=== PATIENT | male | born 1945 | race Caucasian/White ===

== ENCOUNTER 2022-09-29 12:48 | Emergency (ER) | payer MEDICARE, OTHER ==
--- NOTE | 2022-09-29 13:17 | ED Physician Documentation ---
History of Present Illness - Stated complaint Stated Complaint: BP ISSUE - Chief complaint Chief Complaint: Cardiac - History obtained from History obtained from: Patient, Family - Additonal information Additional information: 76-year-old male with past medical history of Parkinson's dementia who presents with his after he was found to have low blood pressure at home today by his home health nurse. As of first day that the home health nurse visited him and she took routine vital signs and found his blood pressure to be in the 70s over 40s. She took several different times.Patient was not having any symptoms, has been in his usual state of health today, no fever or chills, no cough or URI symptoms, no chest pain or difficulty breathing, no abdominal pain, no nausea vomiting or diarrhea, no new urinary symptoms though does state he voids frequently throughout the night. He has not had any changes in his mentation or increased confusion. states that this is happened in the past, patient has had quite labile blood pressure where he is extremely low or if agitated he can be extremely high in the 200s. He has been prescribed metoprolol in the past but is not currently on it. He is not currently on carbidopa levodopa either due to adverse effects Review of Systems Ten Systems: 10 systems reviewed and negative (Except as noted per HPI) PD PAST MEDICAL HISTORY - Past Medical History Past Medical History: Yes Neuro: Parkinson's - Present Medications Home Medications: Ambulatory Orders Medication Instructions Recorded Confirmed Cholecalciferol [Vitamin D3] 5,000 unit PO DAILY 09/29/22 09/29/22 Rivastigmine [Exelon] 1.5 mg PO BID 09/29/22 09/29/22 - Allergies Allergies/Adverse Reactions: Allergies Allergy/AdvReac Type Severity Reaction Status Date / Time No Known Drug Allergies Allergy Verified 09/29/22 13:02 - Social History Does the pt smoke?: No Smoking Status: Never smoker - Immunizations Immunizations are current?: Yes PD ED PE NORMAL - Vitals Vital signs reviewed: Yes - General General: Alert and oriented X 3, No acute distress, Well developed/nourished - HEENT HEENT: Atraumatic, Moist mucous membranes, Pharynx benign - Neck Neck: Supple, no meningeal sign - Cardiac Cardiac: RRR, No murmur, No gallop, No rub, Strong equal pulses - Respiratory Respiratory: No respiratory distress, Clear bilaterally - Abdomen Abdomen: Normal bowel sounds, Soft, Non tender, Non distended - Back Back: No CVA TTP, No spinal TTP - Derm Derm: Normal color, Warm and dry, No rash - Extremities Extremities: No deformity, No edema - Neuro Neuro: Alert and oriented X 3 (slow to respond, mask facies, but awake and alert. ) Eye Opening: Spontaneous Motor: Obeys Commands Verbal: Oriented GCS Score: 15 Results - Vitals Vitals: Vital Signs - 24 hr 09/29/22 09/29/22 09/29/22 12:59 13:03 13:13 Temperature 36.6 C Heart Rate 68 63 Respiratory 11 L 14 Rate Blood Pressure 146/78 H 163/74 H Blood Pressure 163/74 H [Left] O2 Saturation 100 100 Oxygen O2 Source Room air - EKG (time done) No standard instances Rate: Rate (enter#) (59) Rhythm: Sinus bradycardia Kemp: Normal Intervals: Normal [place] QRS: Normal Ischemia: Normal ST segments Compare to prior EKG: Old EKG unavailable Computer interpretation: Agree with computer - Labs Labs: Laboratory Tests 09/29/22 09/29/22 09/29/22 13:13 13:13 13:13 WBC 9.0 RBC 4.70 Hgb 13.1 L Hct 40.6 L MCV 86.4 MCH 27.9 MCHC 32.3 RDW 13.1 Plt Count 258 MPV 10.0 Neut # (Auto) 6.4 Lymph # (Auto) 1.8 Mcintosh # (Auto) 0.8 Eos # (Auto) 0.0 Baso # (Auto) 0.0 Absolute Nucleated RBC 0.00 Nucleated RBC % 0.0 Sodium 139 Potassium 4.3 Chloride 102 Carbon Dioxide 27 Anion Gap 10.0 BUN 32 H Creatinine 1.2 Estimated GFR (MDRD) 59 L Glucose 109 H Calcium 8.8 Total Bilirubin 0.5 AST 15 ALT 13 Alkaline Phosphatase 61 Troponin I High Sens 3.1 Total Protein 6.7 Albumin 3.7 Globulin 3.0 Albumin/Globulin Ratio 1.2 Lipase 44 Urine Color Urine Clarity Urine pH Ur Specific [place] Urine Protein Urine Glucose (UA) Urine Ketones Urine Occult Blood Urine Nitrite Urine Bilirubin Urine Urobilinogen Ur Leukocyte Esterase Ur Microscopic Review Urine Culture Comments 09/29/22 14:00 WBC RBC Hgb Hct MCV MCH MCHC RDW Plt Count MPV Neut # (Auto) Lymph # (Auto) Mcintosh # (Auto) Eos # (Auto) Baso # (Auto) Absolute Nucleated RBC Nucleated RBC % Sodium Potassium Chloride Carbon Dioxide Anion Gap BUN Creatinine Estimated GFR (MDRD) Glucose Calcium Total Bilirubin AST ALT Alkaline Phosphatase Troponin I High Sens Total Protein Albumin Globulin Albumin/Globulin Ratio Lipase Urine Color YELLOW Urine Clarity CLEAR Urine pH 7.0 Ur Specific [place] 1.015 Urine Protein NEGATIVE Urine Glucose (UA) NEGATIVE Urine Ketones NEGATIVE Urine Occult Blood NEGATIVE Urine Nitrite NEGATIVE Urine Bilirubin NEGATIVE Urine Urobilinogen 0.2 (NORMAL) Ur Leukocyte Esterase NEGATIVE Ur Microscopic Review NOT INDICATED Urine Culture Comments NOT INDICATED PD MEDICAL DECISION MAKING - ED course Complexity details: reviewed results, re-evaluated patient, considered differential, d/w patient, d/w family ED course: This is a very pleasant 76-year-old male who presented at the request of his [facility] due to concerns for hypotension. The patient was asymptomatic at the time but had a quite low blood pressure at home. By the time he arrived here, his blood pressure was normal to even somewhat elevated. He had no symptoms and no concerns. We did do a work-up to evaluate for any potential causes of hypotension such as acute coronary syndrome, dehydration, infection, and his work-up was reassuring. His EKG shows no acute ischemic changes, his labs are largely reassuring of a possible slight dehydration on exam with a BUN of 32. His urinalysis was not suspicious for infection and his physical exam was otherwise stable. This is likely secondary to the nonmotor symptoms of Parkinson's and hypotension is unfortunately a common feature of the disease. He was advised to move slowly from different positions to avoid orthostatic hypotension, consider compression stockings which may help, and to drink a large glass of water and perhaps a salty snack if he Developes hypotension. If it does not improve with These interventions or if he has accompanied symptoms such as chest pain or signs of infection, he should follow-up in the ER. Departure - Departure Disposition: 01 Home, Self Care Clinical Impression: Hypotension Qualifiers: Hypotension type: unspecified hypotension type Qualified Code(s): I95.9 - Hypotension, unspecified Condition: Good Instructions: ED Hypotension All Causes Comments: Vineet presented with an episode of hypotension. We evaluated him here and his blood pressure was normal, his cardiac work-up was also stable and there are no signs of infection. He does have possible mild dehydration on his labs and should be encouraged to drink plenty of water in the next several days. Hypotension can occur frequently in people that have Parkinson's disease. This is often orthostatic hypotension which occurs when he stands up or gets up quickly. He should move carefully and move slowly from a seated to standing or laying to seated position to reduce chance of hypotension. Unfortunately there is no specific treatment for this issue but you can ensure that he is staying well-hydrated and you may try compression stockings in his legs that can Help, as well as physical therapy. Some people do try different medications for this issue but they can often result in hypertension. Please follow-up with his regular doctor if for ongoing management of this issue. He is stable for discharge home at this time.
[2022-09-29 13:21] LABS: BASOPHILS % (AUTO) 0.3 %; EOSINOPHILS % (AUTO) 0.3 %; HCT - HEMATOCRIT 40.6 % (42.0-52.0); HGB - HEMOGLOBIN 13.1 g/dL (14.0-18.0); LYMPHOCYTES # (AUTO) 1.8 10^3/uL (1.5-3.5); LYMPHOCYTES % (AUTO) 19.5 %; MEAN CORPUSCULAR HEMOGLOBIN 27.9 pg (27.0-31.0); MEAN CORPUSCULAR HGB CONC 32.3 g/dL (32.0-36.0); MEAN CORPUSCULAR VOLUME 86.4 fL (80.0-94.0); MONOCYTES # (AUTO) 0.8 10^3/uL (0.0-1.0); MONOCYTES % (AUTO) 8.3 %; NEUTROPHILS # (AUTO) 6.4 10^3/uL (1.5-6.6); NEUTROPHILS % (AUTO) 71.3 %; PLT - PLATELET COUNT 258 10^3/uL (130-450); RED CELL DISTRIBUTION WIDTH 13.1 % (12.0-15.0)
[2022-09-29 13:37] LABS: ALBUMIN 3.7 g/dL (3.2-5.5); ALBUMIN/GLOBULIN RATIO 1.2 (1.0-2.2); BILIRUBIN,TOTAL 0.5 mg/dL (0.2-1.0); CALCIUM 8.8 mg/dL (8.5-10.3); CREATININE 1.2 mg/dL (0.6-1.2); POTASSIUM 4.3 mmol/L (3.5-5.0); TOTAL PROTEIN 6.7 g/dL (6.7-8.2)
--- NOTE | 2022-09-29 13:37 | XRAY Report ---
PROCEDURE: Chest 1 View X-Ray INDICATIONS: Chest Pain TECHNIQUE: One view of the chest was acquired. COMPARISON: None. FINDINGS: Surgical changes and devices: None. Lungs and pleura: No pleural effusions or pneumothorax. Lungs are clear. Mediastinum: Mediastinal contours appear normal. Heart size is normal. Bones and chest wall: No suspicious bony lesions. Overlying soft tissues appear unremarkable. IMPRESSION: No acute cardiopulmonary pathology. Reviewed by: Wei Olivera MD on 09/29/2022 1:36 PM [facility] Approved by: Wei Olivera MD on 09/29/2022 1:36 PM [facility] Station ID: [id number]
[2022-09-29 14:09] LABS: BILIRUBIN,URINE NEGATIVE (NEGATIVE); GLUCOSE, URINE (UA) NEGATIVE (NEGATIVE); KETONES,URINE (UA) NEGATIVE (NEGATIVE); LEUKOCYTE ESTERASE, URINE NEGATIVE (NEGATIVE); NITRITE,URINE NEGATIVE (NEGATIVE); OCCULT BLOOD,URINE NEGATIVE (NEGATIVE); PROTEIN,URINE NEGATIVE (NEGATIVE); UROBILINOGEN,URINE 0.2 (NORMAL) E.U./dL (NORMAL)
[2022-09-29 14:11] LABS: CLARITY,URINE CLEAR (CLEAR)
[2022-09-29 14:24] VITALS: BP 163/86
== END 2022-09-29 14:42 | disposition home or self-care (01) ==
LOC: ED 12:48
DX: I95.9 Hypotension, unspecified (principal)
CPT/HCPCS: 36415; 80053; 81001; 81003; 83690; 84484; 85025; 87086; 93005; 99281; 99284

== ENCOUNTER → 2022-09-29 | Outpatient (CLI) | payer MEDICARE | END | disposition critical access hospital (66) | LOC: EMS 12:06 | DX: I95.1 Orthostatic hypotension (principal) | CPT/HCPCS: A0425; A0427 ==

== ENCOUNTER 2023-10-25 17:41 | Outpatient (CLI) | payer MEDICARE | END 2023-10-25 17:42 | disposition critical access hospital (66) | LOC: EMS 17:41 | DX: R30.9 Painful micturition, unspecified (principal); Z99.3 Dependence on wheelchair | CPT/HCPCS: A0425; A0429 ==

== ENCOUNTER 2023-10-25 18:26 | Emergency (ER) | payer MEDICARE ==
[2023-10-25 19:11] VITALS: BP 169/77; O2SAT 100
[2023-10-25 19:22] LABS: BILIRUBIN,URINE NEGATIVE (NEGATIVE); GLUCOSE, URINE (UA) NEGATIVE (NEGATIVE); KETONES,URINE (UA) NEGATIVE (NEGATIVE); LEUKOCYTE ESTERASE, URINE NEGATIVE (NEGATIVE); NITRITE,URINE NEGATIVE (NEGATIVE); OCCULT BLOOD,URINE MODERATE (NEGATIVE); PH,URINE 6.5 PH (5.0-7.5); PROTEIN,URINE NEGATIVE (NEGATIVE); UROBILINOGEN,URINE 0.2 (NORMAL) E.U./dL (NORMAL)
[2023-10-25 19:25] LABS: CLARITY,URINE CLEAR (CLEAR)
[2023-10-25 19:39] LABS: BACTERIA,URINE None Seen /HPF (None Seen); SQUAMOUS EPITHELIAL CELL,UR RARE Squamous (<= Few); WBC,URINE 0-3 /HPF (0-3)
[2023-10-25 19:40] LABS: CASTS, URINE 0-2 Hyaline Casts /LPF
--- NOTE | 2023-10-25 20:04 | ED Physician Documentation ---
PD HPI MALE - Stated complaint Stated Complaint: - Chief complaint Chief Complaint: Abd Pain - History obtained from History obtained from: Patient, Caregiver - Additional information Additional information: 70-year-old male who has a history of dementia presents with his who states that the patient complained of burning with urination earlier today. He had never complained of that before that she thought perhaps it was a urinary tract infection. The patient does not recall saying this and states now that he has not had burning with urination though he is a poor historian given his dementia. The patient has not had any fever, no chills, no chest pain or difficulty breathing, no abdominal pain nausea vomiting or diarrhea. He is incontinent and wears attends but no change in urine output or odor according to . He is confused per baseline, no change in his mental status. No prior kidney stones or other urinary issues. Of note, will the patient his was on the phone talking to the clinic, the patient did tip over in his wheelchair however it does not sound as though he sustained any injuries in this fall, he did not hit his head or lose consciousness and is not complaining of any extremity or other trauma. Review of Systems Constitutional: reports: Reviewed and negative Cardiac: reports: Reviewed and negative Respiratory: reports: Reviewed and negative GI: reports: Reviewed and negative : reports: Dysuria, Incontinent. denies: Frequency, Hesitancy, Unable to Void, Hematuria PD PAST MEDICAL HISTORY - Past Medical History Neuro: Dementia, Parkinson's - Present Medications Home Medications: Ambulatory Orders Medication Instructions Recorded Confirmed Cholecalciferol [Vitamin D3] 5,000 unit PO DAILY 09/29/22 09/29/22 Rivastigmine [Exelon] 1.5 mg PO BID 09/29/22 09/29/22 - Allergies Allergies/Adverse Reactions: Allergies Allergy/AdvReac Type Severity Reaction Status Date / Time No Known Drug Allergies Allergy Verified 09/29/22 13:02 - Social History Does the pt smoke?: No Smoking Status: Never smoker Does the pt drink ETOH?: No Does the pt have substance abuse?: No - Immunizations Immunizations are current?: Yes PD ED PE NORMAL - Vitals Vital signs reviewed: Yes - General General: No acute distress, Well developed/nourished, Other (Dementia per the baseline) - HEENT HEENT: Atraumatic, Moist mucous membranes - Cardiac Cardiac: RRR, No murmur - Respiratory Respiratory: No respiratory distress, Clear bilaterally - Abdomen Abdomen: Normal bowel sounds, Soft, Non tender, Non distended - Back Back: No CVA TTP, No spinal TTP - Derm Derm: Normal color, Warm and dry, No rash Results - Vitals Vitals: Vital Signs - 24 hr 10/25/23 19:04 Temperature 36.6 C Heart Rate 68 Respiratory 18 Rate Blood Pressure 169/77 H O2 Saturation 100 Oxygen O2 Source Room air - Labs Labs: Laboratory Tests 10/25/23 18:55 Urine Color YELLOW Urine Clarity CLEAR Urine pH 6.5 Ur Specific [place] 1.015 Urine Protein NEGATIVE Urine Glucose (UA) NEGATIVE Urine Ketones NEGATIVE Urine Occult Blood MODERATE H Urine Nitrite NEGATIVE Urine Bilirubin NEGATIVE Urine Urobilinogen 0.2 (NORMAL) Ur Leukocyte Esterase NEGATIVE Urine RBC 6-10 H Urine WBC 0-3 Ur Squamous Epith Cells RARE Squamous Urine Bacteria None Seen Urine Casts 0-2 Hyaline Casts Ur Microscopic Review INDICATED Urine Culture Comments NOT INDICATED PD Medical Decision Making - ED course Complexity details: reviewed results, considered differential, d/w patient, d/w family ED course: 78-year-old male presented after complaining of a dysuria earlier today as described in HPI. He denies any symptoms to me though he is a poor historian given his underlying dementia. He has no other symptoms today and is otherwise well-appearing. Urinalysis today was collected via straight cath and there is a small amount of blood that may be secondary to catheterization, no signs of infection. Patient has not have any flank or abdominal pain of the suspicion for kidney stone, and he has no systemic symptoms. I discussed with that the cause of his complaint of dysuria is not known the patient is not complaining of to starting any longer and at this point I have requested that they monitor this, ensure that he stays well-hydrated monitor his urine output, return if there is a change in urine output, odor if he continues to complain of this symptom in the next few days, I recommended repeat urinalysis. Return precautions reviewed. Departure - Departure Disposition: 01 Home, Self Care Clinical Impression: Dysuria Condition: Good Instructions: ED Dysuria Uncertain Cause Comments: He does not appear that he has a urinary tract infection at this time. He does have a small amount of blood in the urine though this can happen when we use a catheter to obtain the urine. urine if he is still complaining of painful urination in the next couple of days, do return or see PCP to repeat the urinalysis. His exam is otherwise stable, he does not have a fever or any other concerning physical exam findings. If he develops a fever, vomiting, increased confusion or new concerns, return to the ER. Forms: PCP List
== END 2023-10-25 20:27 | disposition home or self-care (01) ==
LOC: EDUNIT# → ED 18:26
DX: R30.0 Dysuria (principal); F03.90 Unspecified dementia, unspecified severity, without behavioral disturbance, psychotic disturbance, mood disturbance, and anxiety; R32 Unspecified urinary incontinence
CPT/HCPCS: 81001; 81003; 87086; 99282; 99283

== ENCOUNTER 2023-11-16 15:56 | Outpatient (CLI) | payer MEDICARE | END 2023-11-16 23:59 | disposition EMS.NT | LOC: EMS 15:56 | DX: Z03.89 Encounter for observation for other suspected diseases and conditions ruled out (principal) ==

== ENCOUNTER 2024-01-28 18:41 | Outpatient (CLI) | payer MEDICARE | END 2024-01-28 23:59 | disposition EMS.NT | LOC: EMS 18:41 | DX: Z03.89 Encounter for observation for other suspected diseases and conditions ruled out (principal) ==